=== PATIENT | female | born 1980 | race African-American/Black ===

== ENCOUNTER 2017-02-11 06:08 | Day surgery (SDC) | payer SELFPAY ==
[2017-02-03 14:14] VITALS: BMI 30.4
[2017-02-11] MEDS ORDERED: HEPARIN NA (PORCINE) 5,000 UNITS/ML 1ML VIAL SQ ONE (07:07)
[2017-02-11] MEDS ORDERED: HEPARIN NA (PORCINE) 5,000 UNITS/ML 1ML VIAL ONE (07:10)
[2017-02-11] MEDS ORDERED: BUPIVACAINE HCL/PF 2.5 MG/ML - 30 ML VIAL IJ ONE (07:17)
[2017-02-11] MEDS ORDERED: LIDOCAINE HCL 1%, 10 MG/ML (20ML VIAL) ONE (07:17)
[2017-02-11] MEDS ORDERED: LIDOCAINE 1%-EPI 1:100,000 30 ML MDV IJ ONE (07:18)
[2017-02-11] MEDS ORDERED: GUM MASTIC/STORAX/MSAL/ALCOHOL 1 DRP DROPSBTL MC ONE (07:19)
[2017-02-11] MEDS ORDERED: EPINEPHrine/PF 1 MG/1 ML (1:1,000) AMPULE ONE (07:19)
[2017-02-11] MEDS ORDERED: PROPOFOL 20 ML ONE ×2 (07:44)
[2017-02-11] MEDS ORDERED: HYDROmorphone HCL/PF 1 MG/ML VIAL (FOR PYXIS CHARGING ONLY) ONE (07:44)
[2017-02-11] MEDS ORDERED: SUCCINYLCHOLINE CHLORIDE 200 MG/10 ML VIAL ONE (07:44)
[2017-02-11] MEDS ORDERED: ROCURONIUM BROMIDE 50 MG/5 ML VIAL ONE (07:44)
[2017-02-11] MEDS ORDERED: MIDAZOLAM HCL 2 MG/2 ML SINGLE DOSE VIAL ONE (07:44)
[2017-02-11] MEDS ORDERED: ACETAMINOPHEN INJECTION 100 ML IVPB ONE (08:01)
[2017-02-11] MEDS ORDERED: ceFAZolin SODIUM 1 GM VIAL ONE ×2 (08:34→15:59)
[2017-02-11] MEDS ORDERED: DEXAMETHASONE SOD PHOSPHATE 4 MG/1 ML VIAL ONE (08:54)
[2017-02-11] MEDS ORDERED: ONDANSETRON 4 MG/2 ML VIAL ONE (08:54)
[2017-02-11] MEDS ORDERED: KETOROLAC TROMETHAMINE 30 MG/1 ML VIAL ONE (08:54)
[2017-02-11] MEDS ORDERED: DESFLURANE GAS 240 ML BOTTLE IH ONE (10:03)
[2017-02-11] MEDS ORDERED: BUPIVACAINE HCL/PF 0.25% (2.5MG/ML) 10 ML VIAL IJ ONE ×2 (11:00)
[2017-02-11] MEDS ORDERED: PROMETHAZINE HCL 25 MG/1 ML VIAL IVPUSH PRN (14:59)
[2017-02-11] MEDS ORDERED: ONDANSETRON 4 MG/2 ML VIAL IVPUSH PRN (14:59)
[2017-02-11] MEDS ORDERED: LACTATED RINGERS SOLUTION 1,000 ML IV SCH (15:00)
[2017-02-11] MEDS ORDERED: HYDROmorphone HCL CARPU-JECT 1 MG/1 ML DISP.SYRIN IVPUSH PRN (15:19)
[2017-02-11] MEDS ORDERED: CEFAZOLIN 1 GM in DEXTROSE 5%-WATER - 50 ML IVPB ONE (16:00)
[2017-02-11] MEDS ORDERED: ceFAZolin SODIUM 1 GM VIAL IVPB ONE (16:00)
[2017-02-11 18:13] VITALS: TEMP 98.4
[2017-02-11 18:22] VITALS: BP 146/79; PULSE 87
[2017-02-12 08:05] LABS: HIV 1 & 2 AB NEGATIVE; HIV 1 AGp24 NEGATIVE
[2017-02-14 00:05] LABS: HBeAG Negative (Negative); HEP B SURFACE AB Reactive (.); HEP BE AB Negative (Negative)
--- NOTE | 2017-02-24 11:18 | PATH ---
Surgical Pathology Report Patient Name: KELBY SALCEDO Med. Rec. #: [id number] /Age/Gender: 1980 (Age: 36) / F Account: [id number] Location: [facility] AM[facility] Taken: 02/11/2017 Received: 02/11/2017 Reported: 02/18/2017 Physicians: Gwendolyn Cohen M.D. Specimen(s) Received A: RIGHT ABDOMINAL TISSUE AND SKIN B: LEFT ABDOMINAL TISSUE AND SKIN Clinical History Cosmetic Final Diagnosis A. RIGHT ABDOMINAL TISSUE AND SKIN, ABDOMINOPLASTY: SKIN AND ADIPOSE TISSUE, DESCRIBED (GROSS EXAMINATION ONLY). B. LEFT ABDOMINAL TISSUE AND SKIN, ABDOMINOPLASTY: SKIN AND ADIPOSE TISSUE, DESCRIBED (GROSS EXAMINATION ONLY). Electronically Signed Maren Anguiano M.D. Gross Description A. Received fresh labeled "right abdominal tissue and skin 963 g," is a 20.0 x 19.0 x 4.0 cm brown, triangular, unoriented portion of unremarkable skin with underlying soft tissue. Sectioning reveals yellow, lobulated adipose tissue. No lesions are identified. No sections are submitted, gross only. B. Received fresh labeled "left abdominal tissue and skin 1035 g," is a 25.5 x 21.0 x 3.5 cm brown, triangular, unoriented portion of unremarkable skin with underlying soft tissue. Sectioning reveals yellow, lobulated adipose tissue. No lesions are identified. No sections are submitted, gross only. DL/02/12/2017 saudi/02/12/2017
== END 2017-02-11 17:25 | disposition home or self-care (01) ==
LOC: FASU 06:08
PROVIDERS: ATTEND Surgery
PROC: 0J080ZZ Alteration of Abdomen Subcutaneous Tissue and Fascia, Open Approach (ICD-10-PCS; principal; 2017-02-11 08:46)
PROC: 0J083ZZ Alteration of Abdomen Subcutaneous Tissue and Fascia, Percutaneous Approach (ICD-10-PCS; 2017-02-11 08:46)
DX: Z41.1 Encounter for cosmetic surgery (principal)
CPT/HCPCS: 36415; 84703; 86704; 86705; 86706; 86707; 86803; 87340; 87350; 87389; 88300-TC; 94760; J1644

== ENCOUNTER 2017-09-22 15:29 | Emergency (ER) | payer OTHER ==
[2017-09-22 15:34] VITALS: BP 151/95; PULSE 73; TEMP 98; BMI 28.1
--- NOTE | 2017-09-22 15:50 | PDOC ---
History of Present Illness - History of Present Illness Initial Comments: 09/22/17 16:23 The patient is a 37 year old female, with a significant past medical history of abdominoplasty, who presents to the emergency department with s/p allergic reaction to IV contrast. Patient was here for an outpatient CT scan and within seconds of receiving the IV contrast, the right side of her face started to swell and she began experiencing tightness in her chest. She denies history of asthma, eczema. Denies experiencing this type of allergic reaction previously. She denies recent shortness of breath.She denies recent fevers, chills, headache or dizziness. She denies recent nausea, vomit, diarrhea or constipation. She denies recent dysuria, frequency, urgency or hematuria. Allergies: IV contrast Past surgical history: Abdominoplasty Social history: Nonsmoker. Denies EtOH use and recreational drug use. 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 - Last Filed: 09/22/17 16:42> <Reuben Dawn - Last Filed: 09/24/17 07:46> - General Chief Complaint: Allergic Reaction Stated Complaint: ALLERGIC REACTION S/P CT Time Seen by Provider: 09/22/17 15:37 Past History <Chantel Connell - Last Filed: 09/22/17 16:42> - Past Medical History Anemia: Yes (TREATED WITH IRON) Asthma: No Cancer: No Cardiac Disorders: No CVA: No COPD: No CHF: No DVT: No Dementia: No Diabetes: No GI Disorders: No Disorders: No HTN: No Hypercholesterolemia: No Liver Disease: No Seizures: No Thyroid Disease: No - Surgical History Abdominal Surgery: No Appendectomy: No Cardiac Surgery: No Cholecystectomy: No Gastric Stapling: No Lung Surgery: No Neurologic Surgery: No Orthopedic Surgery: No - Suicide/Smoking/Psychosocial Hx Smoking History: Never smoked Have you smoked in the past 12 months: No Hx Alcohol Use: No Drug/Substance Use Hx: No Substance Use Type: None Hx Substance Use Treatment: No <Reuben Dawn - Last Filed: 09/24/17 07:46> - Past Medical History Allergies/Adverse Reactions: Allergies Allergy/AdvReac Type Severity Reaction Status Date / Time No Known Drug Allergies Allergy Verified 09/22/17 15:30 Home Medications: Ambulatory Orders NK [No Known Home Medication] 09/22/17 Review of Systems - Review of Systems Comments:: 09/22/17 16:23 CONSTITUTIONAL: Absent: fever, no chills, no fatigue EYES: Present: lower left eyelid puffiness Absent: visual changes ENT: Absent: ear pain, no sore throat CARDIOVASCULAR: Present: chest tightness Absent: chest pain, no palpitations RESPIRATORY: Absent: cough, no SOB GI: Absent: abdominal pain, no nausea, no vomiting, no constipation, no diarrhea GENITOURINARY: Absent: dysuria, no frequency, no hematuria MUSCULOSKELETAL: Absent: back pain, no arthralgia, no myalgia SKIN: Absent: rash <Chantel Connell - Last Filed: 09/22/17 16:42> *Physical Exam - Vital Signs Last Vital Signs Temp Pulse Resp BP Pulse Ox 98 F 73 18 151/95 100 09/22/17 15:30 09/22/17 15:30 09/22/17 15:30 09/22/17 15:30 09/22/17 15:30 - Physical Exam Comments: 09/22/17 16:24 GENERAL: Well developed, well nourished. Awake and alert. In no acute distress. HEENT: Normocephalic, atraumatic. PERRLA, EOMI. No conjunctival pallor. Sclera are non- icteric. Moist mucous membranes. No edema of the uvula or other areas of oropharynx. No tongue or lip swelling. Edema of lower eyelids - more prominent on right. No other facial swelling. NECK: Supple. Full ROM. No JVD. Carotid pulses 2+ and symmetric, without bruits. No thyromegaly. No lymphadenopathy. CARDIOVASCULAR: Regular rate and rhythm. No murmurs, rubs, or gallops. No tachycardia. Distal pulses are 2+ and symmetric. PULMONARY: No stridor or drooling. Breath sounds full and clear bilaterally, even though patient felt chest tightness. No upper airway noise with breathing. Full respiration without sign of obstruction. No evidence of respiratory distress. Lungs clear to auscultation bilaterally. No wheezing, rales or rhonchi. ABDOMINAL: Soft. Non-tender. Without mass or organomegaly. Non-distended. No rebound or guarding. Normoactive bowel sounds. MUSCULOSKELETAL Normal range of motion at all joints. No bony deformities or tenderness. No CVA tenderness. EXTREMITIES: No cyanosis. No clubbing. No edema. No calf tenderness. SKIN: Mild periorbital edema, otherwise normal. No erythema or urticaria. Warm and dry. Normal capillary refill. No rashes. No jaundice. NEUROLOGICAL: Alert, awake, appropriate. Cranial nerves 2-12 intact. No deficits to light touch and temperature in face, upper extremities and lower extremities. No motor deficits in the in face, upper extremities and lower extremities. Normoreflexic in the upper and lower extremities. Normal speech. Gait is normal without ataxia. PSYCHIATRIC: Cooperative. Good eye contact. Appropriate mood and affect. <Chantel Connell - Last Filed: 09/22/17 16:42> - Vital Signs Last Vital Signs Temp Pulse Resp BP Pulse Ox 98 F 73 18 151/95 100 09/22/17 15:30 09/22/17 15:30 09/22/17 15:30 09/22/17 15:30 09/22/17 15:30 <Reuben Dawn - Last Filed: 09/24/17 07:46> ED Treatment Course - Medications Given in the ED: ED Medications Discontinued Medications Generic Name Dose Route Start Last Admin Trade Name Freq PRN Reason Stop Dose Admin Diphenhydramine HCl 50 mg 09/22/17 15:47 09/22/17 15:54 Benadryl Injection - IVPUSH 09/22/17 15:48 50 mg ONCE ONE Administration Famotidine 20 mg in 12 mls @ 144 mls/hr 09/22/17 16:11 09/22/17 16:12 Pepcid 20 Mg/12 Ml Push IVPB 09/22/17 16:15 144 mls/hr ONCE ONE Administration <Chantel Connell - Last Filed: 09/22/17 16:42> Medical Decision Making - Medical Decision Making 09/24/17 07:42 At presentation the patient complained of mild itching and swelling of the right eye. Examination revealed normal vital signs, normal mentation, minimal edema of the right lower eyelid only. There was no other facial swelling and no swelling or edema of the oropharynx, tongue, or lips. The lungs were clear with full breath sounds bilaterally and no wheezing rales or rhonchi. The abdomen was soft and nontender. Although it is possible that this was a reaction to intravenous contrast, the localized swelling of the right eye suggests this may be due to contact reaction. Although there was itching, there was no erythema or urticaria. The patient was observed after the administration of Benadryl. She remained stable with no change in her physical examination and the development of no further ALLERGIC manifestations. Her right eyelid remain mildly edematous and she is instructed to use cool compresses and continue Benadryl, return to the ER immediately if there was any increased swelling or difficulty swallowing, breathing, abdominal pain, nausea, or vomiting. She agreed and was discharged in no distress with her to follow-up as recommended. It was also recommended she discuss her ALLERGIC reaction with her primary physician and avoid intravenous contrast administration unless a true emergency, in which case she would have to be pretreated. <Reuben Dawn - Last Filed: 09/24/17 07:46> *DC/Admit/Observation/Transfer - Attestations Scribe Attestion: 09/22/17 16:26 Documentation prepared by Chantel Connell, acting as adjunct faculty for medical terminology for Reuben Recio MD. <Chantel Connell - Last Filed: 09/22/17 16:42> - Discharge Dispostion Admit: No <Reuben Dawn - Last Filed: 09/24/17 07:46> Diagnosis at time of Disposition: Allergic reaction to contrast dye Qualifiers: Encounter type: initial encounter Qualified Code(s): T50.8X5A - Adverse effect of diagnostic agents, initial encounter - Discharge Dispostion Disposition: HOME Condition at time of disposition: Improved - Patient Instructions Printed Discharge Instructions: DI for Adverse Drug Reaction -- Allergic Additional Instructions: Continue Benadryl every 4 hours. Cool compresses to the right eye. Return to ER if symptoms recur or at the first sign of throat irritation, pain or swelling of the throat, tongue, lips, or face, chest tightness or wheezing, abdominal pain, nausea, or vomiting. Inform primary physician of your ALLERGIC reaction to intravenous contrast dye used for radiological procedures. - Post Discharge Activity Forms/Work/School Notes: Back to Work
[2017-09-22] MEDS ORDERED: FAMOTIDINE 20 MG/50 ML IVPB 20 MG/50 ML MG IVPB ONE (15:55)
[2017-09-22] MEDS ORDERED: FAMOTIDINE IV 20 MG/12 ML VIAL IVPB ONE (16:11)
[2017-09-22] MEDS ORDERED: FAMOTIDINE IV 20 MG/12 ML VIAL IVPUSH ONE (22:00)
== END 2017-09-22 17:18 | disposition home or self-care (01) ==
LOC: FER 15:29
PROC: 3E033GC Introduction of Other Therapeutic Substance into Peripheral Vein, Percutaneous Approach (ICD-10-PCS; principal; 2017-09-22)
DX: T50.8X5A Adverse effect of diagnostic agents, initial encounter (principal); X58.XXXA Exposure to other specified factors, initial encounter; Y93.89 Activity, other specified; Y92.238 Other place in hospital as the place of occurrence of the external cause
CPT/HCPCS: 99282-25